=== PATIENT | male | born 1985 | race African-American/Black ===

== ENCOUNTER 2024-05-19 03:56 | Emergency (ER) | payer OTHER, SELFPAY ==
[2024-05-19 04:07] VITALS: BP 162/113
[2024-05-19 06:21] LABS: % Basophils 0.3 % (0-2); % Eosinophils 1.2 % (0-6); % Immature Granulocytes 0.2 % (0-0.5); % Lymphocytes 44.1 % (20.5-51.1); % Neutrophils 42.2 % (42.2-75.2); Absolute Eosinophils 0.1 10^3/uL (0-0.7); Absolute Lymphocytes 2.6 10^3/uL (1.2-3.4); Absolute Monocytes 0.7 10^3/uL (0.1-0.6); Absolute Neutrophils 2.5 10^3/uL (1.4-6.5); Hemoglobin 13.7 g/dL (13.0-18.0); Mean Corp Hgb Conc. 35.1 g/dL (33.0-37.0); Mean Corpuscular Hgb 30.6 pg (27.0-31.0); Mean Corpuscular Volume 87.1 fL (80.0-94.0); Mean Platelet Volume 9.2 fL (7.4-10.4); Nucleated Red Blood Cells % 0 % (-); Platelet Count 248 10^3/uL (130-400); Red Blood Cell Count 4.48 10^6/uL (4.70-6.10); Red Cell Dist. Width 12.7 % (11.5-14.5); White Blood Cell Count 5.8 10^3/uL (4.8-10.8)
[2024-05-19] MEDS: NSS 1000 IV (06:28)
--- NOTE | 2024-05-19 06:32 | ED.GENMED ---
History of Present Illness
General
Chief Complaint: Headache
Source: patient
Exam Limitations: none
Time Seen by Provider: 05/19/24 06:25
History of Present Illness
History of Present Illness:
See MDM
Past History
Past History
ED Past Medical History: None
ED Past Surgical History: Other ([place] teeth)
Social History
Tobacco: Non-smoker
Alcohol: None
Employment: Employed
Family History
Family History: Negative Diabetes, Hypertension or CAD
Phy Exam
Physical Exam
Physical Exam:
See MDM
Course
Orders/Labs/Results
Orders:
Orders
05/19/24 04:18
ECG [Electrocardiogram (*1)] Urgent
Reason for Study: Chest Pain
05/19/24 04:19
EKG- Treatment ONCE
05/19/24 06:04
Complete Blood Count/With Diff Urgent
Comprehensive Metabolic Panel Urgent
Troponin I Urgent
05/19/24 06:28
0.9% Sodium Chloride 1000 ml [Nss] 1,000 ml IV BOLUS
05/19/24 06:30
Diphenhydramine [Benadryl] 25 mg IV NOW STA
Ketorolac [Toradol] 30 mg IV NOW STA
Abnormal Lab Results
05/19/24
06:04
RBC 4.48 L 10^6/uL
(4.70-6.10)
Absolute Monos (auto) 0.7 H 10^3/uL
(0.1-0.6)
Monocytes % 12.0 H %
(1.7-9.3)
Carbon Dioxide 31 H mmol/L
(22-30)
05/19/24 06:04
05/19/24 06:04
Vital Signs
Initial and Last Documented VS:
Initial Vital Signs
Temp Pulse Resp BP Pulse Ox
97.9 F 82 16 162/113 99
05/19/24 04:07 05/19/24 04:07 05/19/24 04:07 05/19/24 04:07 05/19/24 04:07
Last Documented Vital Signs
Temp Pulse Resp BP Pulse Ox
97.6 F 82 16 136/71 100
05/19/24 07:57 05/19/24 07:57 05/19/24 07:57 05/19/24 07:57 05/19/24 07:57
MDM/Problems Addressed
Differential Diagnosis Includes:
HPI and MDM Narrative:
38-year-old male complaining of multiple issues. Patient states he twisted his right ankle a few days ago. He acknowledges that he is not a fan of medications. He took a few Tylenol and developed headache, dizziness and nausea. Patient is unsure
if it was related. On exam, he is sitting in bed comfortably. Patient has no meningismus. Heart regular rate and rhythm. No ankle deformity noted. Patient states he went to make sure that his headache and intermittent chest comfort were not
serious based on his prior history of high blood pressure. His EKG appears nonischemic. Regardless, troponin was ordered. Patient appears dehydrated. He acknowledges that he is under more stress than normal. Will give fluids and Toradol and
obtain basic blood work
Physical exam
General: Well appearing and non-toxic
HEENT: protecting airway. Pupils equal and reactive. No tenderness to temporal arteries. Dry mucous membranes
Neck: supple
CV: No evidence of cyanosis. Regular rate and rhythm
Resp: No accessory muscle use
Abd: Non-distended
Extremities: No deformities. No ankle tenderness
Neuro: alert
Psych: Normal affect
Skin: Intact
Problems Addressed including Acute and Chronic Conditions affecting care:
1. Headache
Acuity: acute
Prognosis: stable
Details: Prior records indicate history of headache similar in presentation with a normal CT head. Will give Toradol
2. Dehydration
Acuity: acute
Prognosis: stable
Details: Will give IV fluids
Updates
Patient feeling better on exam and sleeping. He feels comfortable going home
Differential Diagnosis (but not limited to): Dehydration, migraine, adverse medication reaction
Testing considered: CT head but prior records indicate normal CT in 2021 with similar presentation
Drug therapy (if applicable): OTC meds, please see d/c instruction regarding Rx drugs
Amount and/or Complexity of Data Reviewed
Clinical info obtained from: Patient
External data reviewed: Prior history of headaches with normal CT
Labs I independently reviewed (but not limited to): White blood cell count normal
Radiology: N/A
Pulse Ox: not hypoxic
EKG independently reviewed: Sinus rhythm, normal axis, no STEMI
Dinkey Skinner: Sinus rhythm
Critical Care: N/A
Risk of Complication:
Social Determinants of health: Good social support
Discussed with other providers: N/A
Escalation of Care includes Admit/Obs: After being observed in the Emergency Department, pt stable for discharge.
Occasional wrong word or 'sound a like' substitutions may have occurred due to the inherent limitations of voice recognition software. Read the chart carefully and recognize, using context, where substitutions have occurred.
*Critical Care Note
Total Time (30-74mins, 75-104mins- exclusive of procedures): Not Applicable
ED Attending Note
-
Portions of this chart may have been created with voice recognition software.� Occasional wrong word or��sound alike� substitutions may have occurred due to the inherent limitations of voice recognition software.
Discharge Plan
Departure
Patient Disposition: Home (Routine Discharge)
Date of Disposition: 05/19/24
Time of Disposition: 10:46
Patient with high blood pressure during this ER visit?: No
Discharge Problem:
Headache
Instructions: Headache, Adult (DC)
Prescriptions:
No Action
No Current Medications
0
Referrals:
Lily Phillip CRNP [Family Provider] -
Activity Restrictions/Additional Instructions:
Please return for any worsening symptoms.
You may return at any time if you have further concerns.
Please follow up with your doctor at the first available appointment, preferably this week.
Thank you for choosing [facility].
Interventions
Interventions:
*Risk Screen - Suicide Last Done: 05/19/24 07:57
*General Assessment Last Done: 05/19/24 07:57
*Neglect/Abuse Screening Last Done: 05/19/24 07:57
ED- Fall Risk Assessment Last Done: 05/19/24 07:57
*ED COVID-19 Vaccine History Last Done: 05/19/24 07:57
ED- Neurological Assessment Last Done: 05/19/24 07:57
Discharge Date and Time
Print Language: BULGARIAN
[2024-05-19] MEDS: BENADRYL 25 MG IV (06:34)
[2024-05-19] MEDS: TORADOL 30 MG IV (06:34)
[2024-05-19 06:38] LABS: ALT (SGPT) 45 U/L (0-50); AST (SGOT) 29 U/L (17-59); Albumin 4.4 g/dl (3.5-5.0); Alkaline Phosphatase 60 U/L (38-126); Blood Urea Nitrogen 9 mg/dl (9-20); Calcium 9.3 mg/dl (8.4-10.2); Carbon Dioxide 31 mmol/L (22-30); Chloride 102 mmol/L (98-107); Glucose 99 mg/dl (70-99); Potassium 3.8 mmol/L (3.5-5.1); Sodium 143 mmol/L (135-145); Total Bilirubin 0.7 mg/dl (0.2-1.3); Total Protein 7.3 g/dl (6.3-8.2); eGFR > 60.00
[2024-05-19 06:48] LABS: Troponin I 0.023 ng/ml
[2024-05-19 07:57] VITALS: BP 136/71
--- NOTE | 2024-05-19 08:03 | EDRN ---
the pt was received from previous rn shift mgr RN, the pt is resting in stretcher in the lowest position, side rails up x2, call matthews within reach, HOB elevated, no s/s of distress, VS WNL, the pt denies H/A, denies CP, denies SOB, no c/o
lightheadedness or dizziness, no c/o N/V/D, [facility] the pt stated that he wanted to get up to go to the bathroom, this RN unhooked the pt from the monitor, the pt was able to ambulate to the bathroom with no issues, the pt
ambulated back to the stretcher and stated that he didn't want the monitor on, this RN educated the pt on monitoring the pt since he stated that he had dizziness, a headache, and chest tightness, the pt stated that he understood but stated that he
feels fine now, this RN notified Dr. Child, will continue to monitor the pt closely
[2024-05-19 09:00] VITALS: BP 136/71
[2024-05-19 10:00] VITALS: BP 131/92
[2024-05-19 10:50] VITALS: BP 135/61
== END 2024-05-19 10:53 | disposition home or self-care (01) ==
LOC: EMR 03:56
PROVIDERS: Emergency Medicine; EMERGENCY PHYSICIAN Student in an Organized Health Care Education/Training Program; FAMILY PHYSICIAN Nurse Practitioner Adult Health
DX: R51.9 Headache, unspecified (principal); R07.89 Other chest pain; I10 Essential (primary) hypertension; Z73.3 Stress, not elsewhere classified
CPT/HCPCS: 99284; 96374; 96375; 96361; 80053; 84484; 85025; 93005

== ENCOUNTER 2025-01-26 20:43 | Emergency (ER) | payer OTHER, SELFPAY ==
[2025-01-26 20:44] VITALS: BP 198/120
[2025-01-26 21:10] LABS: Hematocrit 44.3 % (39.0-52.0); Mean Corp Hgb Conc. 33.9 g/dL (33.0-37.0); Mean Corpuscular Hgb 30.9 pg (27.0-31.0); Mean Corpuscular Volume 91.2 fL (80.0-94.0); Platelet Count 246 10^3/uL (130-400); Red Blood Cell Count 4.86 10^6/uL (4.70-6.10); Red Cell Dist. Width 12.3 % (11.5-14.5); White Blood Cell Count 6.3 10^3/uL (4.8-10.8)
[2025-01-26 21:22] LABS: ALT (SGPT) 53 U/L (0-50); AST (SGOT) 37 U/L (17-59); Albumin 4.8 g/dl (3.5-5.0); Alkaline Phosphatase 60 U/L (38-126); Blood Urea Nitrogen 8 mg/dl (9-20); Calcium 9.5 mg/dl (8.4-10.2); Carbon Dioxide 32 mmol/L (22-30); Chloride 101 mmol/L (98-107); Glucose 107 mg/dl (70-99); Potassium 3.5 mmol/L (3.5-5.1); Sodium 143 mmol/L (135-145); Total Bilirubin 0.5 mg/dl (0.2-1.3); Total Protein 8.3 g/dl (6.3-8.2); eGFR > 60.00
[2025-01-26 21:36] LABS: COVID-19 Antigen Negative (Negative)
[2025-01-26 21:59] VITALS: BMI 32.9
[2025-01-26 22:00] VITALS: BP 164/109
[2025-01-26 22:03] LABS: % Basophils 0.3 % (0-2); % Eosinophils 0.9 % (0-6); % Immature Granulocytes 0.2 % (0-0.5); % Lymphocytes 55.5 % (20.5-51.1); % Monocytes 7.9 % (1.7-9.3); % Neutrophils 35.2 % (42.2-75.2); Absolute Eosinophils 0.1 10^3/uL (0-0.7); Absolute Lymphocytes 3.5 10^3/uL (1.2-3.4); Absolute Monocytes 0.5 10^3/uL (0.1-0.6); Absolute Neutrophils 2.2 10^3/uL (1.4-6.5); Nucleated Red Blood Cells % 0 % (-)
[2025-01-26 23:01] VITALS: BP 154/103
--- NOTE | 2025-01-27 00:37 | ED.GENMED ---
History of Present Illness
General
Chief Complaint: Cold/Flu/URI Symptoms
Source: patient
Exam Limitations: none
Time Seen by Provider: 01/26/25 22:54
Nursing documentation reviewed up to this point in time: agreed with
History of Present Illness
History of Present Illness:
Patient to ED with cmoplaint of cough, nasal congestion, painful tongue. Symptoms started a few days ago. Brought self to ED for eval. Denies fever/chills.
Past History
Past History
ED Past Medical History: None
ED Past Surgical History: Other ([place] teeth)
Social History
Tobacco: Non-smoker
Alcohol: None
Employment: Employed
Family History
Family History: Negative Diabetes, Hypertension or CAD
Phy Exam
General Physical Exam
General Presentation: well appearing and no apparent distress
General age: appears stated age
General Skin: warm and dry
General Habitus: normal
General Mental: alert
ENT Exam
ENT Exam: EOMI, TM's normal, pharynx normal, neck supple, normocephalic and swallowing well
Cardiovascular Exam
Cardiovascular Exam: regular rate/rhythm and no edema
Pulmonary Exam
Pulmonary Exam: lungs clear and no respiratory distress
Gastrointestinal Exam
Gastrointestinal Exam: non tender and soft
Musculoskeletal Exam
Musculoskeletal Exam: full ROM and neuro vasc intact
Skin Exam
Skin Exam: normal color, warm/dry and no rash
Psychiatric Exam
Psychiatric Exam: normal mood/affect
Course
Orders/Labs/Results
Orders:
Orders
01/26/25 20:55
Comprehensive Metabolic Panel Urgent
01/26/25 20:56
COVID-19 Antigen Urgent
Source: Nasal Swab
Complete Blood Count/With Diff Urgent
Influenza A+B Rapid Molecular Urgent
ALIS Source: Nasal Swab
Specimen Description:
01/26/25 23:04
CR Chest - 2 Views Urgent
Comment:
Reason For Exam: cough
Abnormal Lab Results
01/26/25 01/26/25
20:55 20:56
Absolute Lymphs (auto) 3.5 H 10^3/uL
(1.2-3.4)
Neutrophils % 35.2 L %
(42.2-75.2)
Lymphocytes % 55.5 H %
(20.5-51.1)
Carbon Dioxide 32 H mmol/L
(22-30)
BUN 8 L mg/dl
(9-20)
Glucose 107 H mg/dl
(70-99)
ALT 53 H U/L
(0-50)
Total Protein 8.3 H g/dl
(6.3-8.2)
01/26/25 20:56
01/26/25 20:55
Vital Signs
Initial and Last Documented VS:
Initial Vital Signs
Temp Pulse Resp BP Pulse Ox
98.4 F 96 16 198/120 97
01/26/25 20:44 01/26/25 20:44 01/26/25 20:44 01/26/25 20:44 01/26/25 20:44
Last Documented Vital Signs
Temp Pulse Resp BP Pulse Ox
98.4 F 84 16 154/103 98
01/26/25 20:44 01/26/25 22:10 01/26/25 22:10 01/26/25 23:01 01/26/25 23:01
*Critical Care Note
Total Time (30-74mins, 75-104mins- exclusive of procedures): Not Applicable
Update Note
Update Note:
Patient to ED wtih complaint of URI symptoms. No concerning findings onexam tonight. Afebrile. Pulse ox 98%RA. No evidence of pneumonia on CXR. WIll discharge home, supportive care, close followup with PCP. Given instructions on s/s to return
to ED and he is agreeable to plan.
ED Attending Note
-
Portions of this chart may have been created with voice recognition software.� Occasional wrong word or��sound alike� substitutions may have occurred due to the inherent limitations of voice recognition software.
Discharge Plan
Departure
Patient Disposition: Home (Routine Discharge)
Date of Disposition: 01/26/25
Time of Disposition: 23:27
Patient with high blood pressure during this ER visit?: No
Condition: Good
Covid-19: Not Applicable
Discharge Problem:
URI (upper respiratory infection)
Instructions: Viral Upper Respiratory Infection, Adult (DC)
Prescriptions:
No Action
No Current Medications
0
Referrals:
Lily Phillip CRNP [Family Provider] - Tomorrow
Stand Alone Forms: Return to Work
Activity Restrictions/Additional Instructions:
Return to the emergency department immediately for any changes in/worsening of your symptoms.
Interventions
Interventions:
*Risk Screen - Suicide Last Done: 01/26/25 20:44
*General Assessment Last Done: 01/26/25 20:44
*Neglect/Abuse Screening Last Done: 01/26/25 20:44
*ED- Fall Risk Assessment Last Done: 01/26/25 21:59
*ED COVID-19 Vaccine History Last Done: 01/26/25 20:44
*Nursing Disposition Last Done: 01/26/25 23:34
ED- Pulmonary Assessment Last Done: 01/26/25 21:59
Discharge Date and Time
Discharge Date/Time: 01/26/25 23:35
Print Language: YORUBA
== END 2025-01-26 23:35 | disposition home or self-care (01) ==
LOC: EMR 20:43
PROVIDERS: Emergency Medicine; EMERGENCY PHYSICIAN Student in an Organized Health Care Education/Training Program; FAMILY PHYSICIAN Nurse Practitioner Adult Health
DX: J06.9 Acute upper respiratory infection, unspecified (principal); Z11.52 Encounter for screening for COVID-19
CPT/HCPCS: 99284; 71046; 80053; 85025; 87502; 87811